=== PATIENT | female | born 1970 | race Caucasian/White ===

== ENCOUNTER 2019-01-04 04:23 | Emergency (ER) | payer OTHER ==
[~2019-01-04] VITALS: Ht 157.5 cm; Wt 97.5 kg
[~2019-01-04 04:23] MED LIST: CEPH-443 PO; IBUP-1542 PO; ONDA4TAB14 PO; SULF1TAB31 PO
[2019-01-04 04:35] VITALS: Ht 157.5 cm; Wt 97.5 kg
[2019-01-04] MEDS ORDERED: ONDANSETRON 4 MG INJ IV STA (06:16)
[2019-01-04] MEDS ORDERED: HYDROmorphONE 1 MG/ML SYG IV STA (06:16)
[2019-01-04] MEDS ORDERED: IOHEXOL 300MG/ML 150 ML BTL ONE (07:05)
[2019-01-04] MEDS ORDERED: SOD CHLORIDE 0.9% 100 ML ONE (07:05)
[2019-01-04] MEDS ORDERED: VANCOMYCIN 1 GM (PMX) 250 ML IVPB ONE (08:00)
[2019-01-04 10:26] VITALS: BP 132/89; PULSE 67; RESP 18
== END 2019-01-04 10:26 | disposition home or self-care (01) ==
LOC: E/R 04:23
DX: K11.21 Acute sialoadenitis (principal); R11.2 Nausea with vomiting, unspecified
CPT/HCPCS: 36415; 70486; 70491; 80053; 81001; 81025; 82150; 83690; 85025; 96374; 96375; J1170; J2405; J3370; Q9967; Z7502; Z7610